=== PATIENT | male | born 1980 | race Caucasian/White ===

== ENCOUNTER 2017-01-17 10:03 | Emergency (ER) | payer BC ==
[2017-01-17] MEDS ORDERED: Tetracaine HCl/PF 0.5% 4 ML Bottle EYERT ONE (11:03)
[2017-01-17] MEDS ORDERED: Fluorescein 1 MG Ophth Strip EYERT ONE (11:03)
--- NOTE | 2017-01-17 11:23 | EDM.PDOC ---
ED HPI GENERAL MEDICAL PROBLEM - General Chief Complaint: Eye Problems Stated Complaint: [id number] EYE PAIN RED Time Seen by Provider: 01/17/17 11:10 Source of Information: Reports: Patient History Limitations: Reports: No Limitations - History of Present Illness INITIAL COMMENTS - FREE TEXT/NARRATIVE: This 36 yo male patient reports to the ED with light sensitivity, pain and redness of his right eye. 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 The patient reports he was feeling normal last night when he went to bed, but woke up this morning with these symptoms. Onset: Today Duration: Constant, Getting Worse Location: Reports: Other (right eye) Quality: Reports: Ache, Dull Severity: Moderate Improves with: Reports: None Worsens with: Reports: None Associated Symptoms: Reports: No Other Symptoms Right Eye Pain Score (Numeric/FACES): 5 - Related Data Allergies Allergy/AdvReac Type Severity Reaction Status Date / Time No Known Allergies Allergy Verified 01/17/17 10:18 Home Meds: Home Meds . [No Known Home Meds] 01/17/17 [History] Past Medical History - Past Health History Medical/Surgical History: Denies Medical/Surgical History Social & Family History - Tobacco Use Smoking Status *Q: Former Smoker Used Tobacco, but Quit: Yes Month Tobacco Last Used: 2015 - Caffeine Use Caffeine Use: Reports: Coffee, Soda - Recreational Drug Use Recreational Drug Use: No ED ROS GENERAL - Review of Systems Review Of Systems: ROS reveals no pertinent complaints other than HPI. ED EXAM GENERAL W FULL EYE - Physical Exam Exam: See Below Exam Limited By: No Limitations General Appearance: Alert, WD/WN, Moderate Distress Eye Exam: Right Eye: Conjunctival Injection, Corneal Abrasion, Left Eye: Normal Inspection, Bilateral Eye: EOMI, PERRL Eyelids: Right: Erythema, Left: Normal Appearance Conjunctiva & Sclera: Right: Conjunctival Edema, Injected, Scleral Icterus, Left : Normal Appearance Cornea Exam: Right: Corneal Abrasion, Left: Normal Appearance Extraocular Movements: Bilateral: Intact Pupils: Normal Accommodation Pupillary Size: Bilateral: 4 mm Pupillary Reaction: Bilateral: Brisk Anterior Chamber: Bilateral: Normal Appearance Posterior Chamber: Bilateral: Normal Funduscopic Ears: Normal External Exam, Normal Canal, Hearing Grossly Normal, Normal TMs Nose: Normal Inspection, Normal Mucosa, No Blood Throat/Mouth: Normal Inspection, Normal Lips, Normal Teeth, Normal Gums, Normal Oropharynx, Normal Voice, No Airway Compromise Head: Atraumatic, Normocephalic Neck: Normal Inspection, Supple, Non-Tender, Full Range of Motion Respiratory/Chest: No Respiratory Distress, Lungs Clear, Normal Breath Sounds, No Accessory Muscle Use, Chest Non-Tender Cardiovascular: Normal Peripheral Pulses, Regular Rate, Rhythm, No Edema, No Gallop, No JVD, No Murmur, No Rub (Male) Exam: Deferred Rectal (Males) Exam: Deferred Back Exam: Normal Inspection, Full Range of Motion, NT Extremities: Normal Inspection, Normal Range of Motion, Non-Tender, Normal Capillary Refill, No Pedal Edema Neurological: Alert, Oriented, CN II-XII Intact, Normal Cognition, Normal Gait, Normal Reflexes, No Motor/Sensory Deficits Psychiatric: Normal Affect, Normal Mood Skin Exam: Warm, Dry, Intact, Normal Color, No Rash Lymphatic: No Adenopathy ED EYE w/ Add Procedure - Eye Procedure Alcaine Drops Administered: Yes Antibiotic Oinment/Drps Admin: Right Eye Course - Vital Signs Last Recorded V/S: Last Vital Signs Temp 36.3 C 01/17/17 10:14 Pulse 78 01/17/17 10:14 Resp 16 01/17/17 10:14 BP 136/81 01/17/17 10:14 Pulse Ox 98 01/17/17 10:14 - Orders/Labs/Meds Orders: Active Orders 24 hr Category Date Time Status Gentamicin [Gentak 0.3% Ophth Oint] Med 01/17/17 11:30 Ordered 1 gm EYERT TID Medication Orders Gentamicin Sulfate (Gentak 0.3% Ophth Oint) 1 gm EYERT TID ALMA Meds: Medications Generic Name Dose Route Start Last Admin Trade Name Freq PRN Reason Stop Dose Admin Gentamicin Sulfate 1 gm 01/17/17 11:30 Gentak 0.3% Ophth Oint EYERT TID ALMA Discontinued Medications Generic Name Dose Route Start Last Admin Trade Name Freq PRN Reason Stop Dose Admin Fluorescein Sodium 1 mg 01/17/17 11:03 Ful-Chloe EYERT 01/17/17 11:04 ONETIME ONE Tetracaine HCl 1 ml 01/17/17 11:03 Tetracaine 0.5% Steri-Unit Eri EYERT 01/17/17 11:04 ASDIRECTED ONE Departure - Departure Time of Disposition: 11:19 Disposition: Home, Self-Care 01 Condition: Fair Clinical Impression: Corneal abrasion Qualifiers: Encounter type: initial encounter Laterality: right Qualified Code(s): S05.01XA - Injury of conjunctiva and corneal abrasion without foreign body, right eye, initial encounter - Discharge Information Instructions: Corneal Abrasion, [id number] Forms: ED Department Discharge Care Plan Goals: The patient was advised of the examination results during the visit. The patient 's eye was examined after getting numbing drops and dye. An antibiotic ointment was applied to the right eye prior to leaving the ED. The patient was discharged with Gentek Ointment to apply a 1/4 inch ribbon to the right lower eyelid 4 times per day for 5 days. If the patient has any additional symptoms or concerns, the patient should follow-up with his primary care facility or return to the emergency department. - My Orders Last 24 Hours: My Active Orders 01/17/17 11:30 Gentamicin [Gentak 0.3% Ophth Oint] 1 gm EYERT TID - Assessment/Plan Last 24 Hours: My Active Orders 01/17/17 11:30 Gentamicin [Gentak 0.3% Ophth Oint] 1 gm EYERT TID
== END 2017-01-17 11:41 | disposition home or self-care (01) ==
LOC: DL.ED 10:03
DX: S05.01XA Injury of conjunctiva and corneal abrasion without foreign body, right eye, initial encounter (principal); Z87.891 Personal history of nicotine dependence; X58.XXXA Exposure to other specified factors, initial encounter
CPT/HCPCS: 99282; A9270